=== PATIENT | male | born 1960 | race Caucasian/White ===

== ENCOUNTER → 2024-09-03 08:20 | Outpatient (CLI) | payer MEDICARE, OTHER, SELFPAY ==
--- NOTE | 2024-09-03 08:21 | DI.US.S_ITS ---
PROCEDURE: US EXTREMITY NONVASC LOWER RT INDICATIONS: swain's cyst, possible rupture TECHNIQUE: Real-time scanning was performed of the right knee , with image documentation. COMPARISON: Outside Facility, US, US EXTREMITY NONVASC LOWER RT, 07/08/2024, 16:14. FINDINGS: At the right medial-posterior popliteal fossa, there is a 5.4 x 11.3 x 0.9 cm hypoechoic fluid collection with internal lobulated debris. This collection is contiguous with a fluid collection at the anterior-superior patella. IMPRESSION: Possible 11.3 cm Swain's cyst versus posterior extension of a joint effusion. MRI knee without contrast would be recommended for adequate characterization. Dictated by: Jan Gandara M.D. on 09/03/2024 at 15:07 Approved by: Jan Gandara M.D. on 09/03/2024 at 15:09
== END ==
PROVIDERS: PCP Family Medicine; Referring Provider Family Medicine; Visit Provider Family Medicine
DX: M71.21 Synovial cyst of popliteal space [Baker], right knee (principal)
CPT/HCPCS: 76882

== ENCOUNTER → 2024-09-20 08:41 | Outpatient (CLI) | payer MEDICARE, OTHER, SELFPAY ==
--- NOTE | 2024-09-20 09:15 | DI.MRI.S_ITS ---
PROCEDURE: MR KNEE RT WO CON INDICATIONS: Swain's cyst versus posterior extension of a joint effusion TECHNIQUE: Noncontrast sagittal PD fast spin echo and T2 fast spin echo with fat saturation, sagittal 3-D FLASH with fat saturation; coronal T1 spin echo and PD fast spin echo with fat saturation, and axial PD fast spin echo with fat saturation through the knee. COMPARISON: None. FINDINGS: Image quality: Excellent. Menisci: There is linear oblique, horizontal, and amorphous high signal intensity within the inner, middle, and peripheral thirds of the medial meniscal body and posterior horn, demonstrating superior and inferior articular surface extension, indicating complex tearing. Linear horizontal high T2 signal intensity traverses the inner, middle, and peripheral thirds of the lateral meniscal body, demonstrating inferior articular surface extension, indicating horizontal tearing. Cruciate ligaments: The anterior and posterior cruciate ligaments appear intact. Medial structures: Partial-thickness tearing of the medial collateral ligament is present.. Visualized portions of the pes anserinus tendons appear normal. No abnormal bursal fluid. Lateral structures: The lateral collateral ligament, long and short heads of the biceps femoris tendon appear intact. The popliteus tendon appears normal. Iliotibial band appears normal. Anterior structures: There is thickening of the distal quadriceps tendon which demonstrates several small high T2 intensity foci. Moderate T2 signal elevation within the patellar tendon at the patellar insertion site.. Patellar alignment is normal. No femoral trochlear dysplasia or ventral trochlear prominence. No edema in the infrapatellar fat pad. Bones and cartilage: No bone marrow contusions or fractures. Severe articular cartilage loss diffusely overlies the weight-bearing aspects of the medial femoral condyle and medial tibial plateau. Moderate articular cartilage loss overlies the medial and lateral patellar facets. Joint space: There is a moderate knee joint effusion and a small Swain's cyst. Normal appearing synovial plicae are incidentally noted. IMPRESSION: 1. Medial and lateral meniscal tearing. 2. Tricompartmental osteoarthritis with associated articular cartilage loss. 3. Low-grade partial-thickness tearing of the quadriceps tendon. 4. Patellar tendinitis. 5. Partial-thickness tearing of the medial collateral ligament. 6. Knee joint effusion and Swain's cyst. Dictated by: Raul Culp M.D. on 09/20/2024 at 11:52 Approved by: Raul Culp M.D. on 09/20/2024 at 11:55
== END ==
PROVIDERS: PCP Family Medicine; Referring Provider Family Medicine; Visit Provider Family Medicine
DX: S83.241A Other tear of medial meniscus, current injury, right knee, initial encounter (principal); S83.281A Other tear of lateral meniscus, current injury, right knee, initial encounter; S76.111A Strain of right quadriceps muscle, fascia and tendon, initial encounter; S83.411A Sprain of medial collateral ligament of right knee, initial encounter; M17.11 Unilateral primary osteoarthritis, right knee; M25.461 Effusion, right knee; M76.51 Patellar tendinitis, right knee
CPT/HCPCS: 73721

== ENCOUNTER 2024-10-20 09:46 | Emergency (ER) | payer MEDICARE, OTHER, SELFPAY ==
[2024-10-20 09:52] VITALS: BP 130/64; PULSE 71; O2SAT 98
[2024-10-20 09:57] VITALS: BP 130/64; PULSE 71; RESP 16; TEMP 36.7; O2SAT 95
[2024-10-20 10:00] VITALS: BP 128/67; PULSE 71; O2SAT 94
--- NOTE | 2024-10-20 10:04 | PC.NURSE ---
Pt ambulatory to room with cane. Swelling noted to RLE.
--- NOTE | 2024-10-20 10:11 | PC.NURSE ---
Measured right and left legs and they are consistent with the measurements from [facility]. Swelling has increased up leg to above knee and edema to foot and ankle.
[2024-10-20 10:30] VITALS: BP 113/69; PULSE 62; O2SAT 95
--- NOTE | 2024-10-20 10:55 | DI.US.S_ITS ---
PROCEDURE: US PERIPH VENOUS LOW EXTREM RT INDICATIONS: Known right lower extremity DVT, worsening symptoms TECHNIQUE: Real-time imaging, as well as color and pulse Doppler interrogation, were performed of the lower extremity deep veins from the inguinal ligament to the popliteal fossa, with documentation of the visualized calf veins. COMPARISON: [facility], US EXTREMITY NONVASC LOWER RT, 09/03/2024, 8:41. FINDINGS: The common femoral, femoral, popliteal, and the visualized calf veins are normally compressible, and free of intraluminal thrombus. Color and pulse Doppler demonstrate normal phasic intraluminal flow. There is normal augmentation response to distal compression maneuver. Suspect repair Swain cyst. There is a complex fluid collection without vascularity extending from the popliteal fossa down the medial/metal calf, measuring 20.9 x 3.6 x 3.6 cm. Extension into the calf appears to be new. IMPRESSION: 1. Suspect ruptured Swain cyst. 2. No right lower extremity DVT identified. Dictated by: William Salamanca M.D. on 10/20/2024 at 12:00 Approved by: William Salamanca M.D. on 10/20/2024 at 12:05
--- NOTE | 2024-10-20 10:57 | ED.LOWEXIN ---
HPI - Extremity Injury (Lower) General Chief Complaint: Extremity Injury, Lower Stated Complaint: Right leg blood clot . not getting better Time Seen by Provider: 10/20/24 09:49 Source: patient Mode of arrival: Ambulatory History of Present Illness HPI Narrative: Patient is an adult male with a history of deep vein thrombosis (DVT) diagnosed in the right lower extremity last Friday, who presents with worsening pain and swelling in the affected leg despite treatment with Eliquis. The patient initially experienced pain and swelling localized to the right calf, which has since progressed to involve the foot, ankle, and knee. He reports sharp pain in the posterior aspect of the leg, particularly upon standing and walking, and increased tenderness in the knee today. He has been compliant with Eliquis, taking 10 mg twice daily as prescribed, and has been resting, elevating the leg, and applying heat as instructed. He initially noted improvement on Friday but has since experienced worsening symptoms. He denies chest pain, shortness of breath, or other systemic symptoms. Pertinent positives: Increased swelling and sharp pain in the right lower extremity, tenderness in the knee, and progression of symptoms to involve the foot, ankle, and knee. Pertinent negatives: No chest pain, shortness of breath, erythema, or signs of infection. No pain with passive range of motion of the right knee. Related Data Home Medications Medication Instructions Recorded Confirmed Bacillus coagulans 250 million 500 mmu cells PO QDAY 08/31/24 08/31/24 cell chewable tablet (Digestive Advantage Probiotic Gummy) CPAP 08/31/24 cholecalciferol (vitamin D3) 25 25 mcg PO DAILY 08/31/24 08/31/24 mcg (1,000 unit) capsule epinephrine 0.3 mg/0.3 mL 0.3 mg IM ONCE anaphylaxis, crab 08/31/24 08/31/24 injection, auto-injector ferrous gluconate 1 cap PO .QD 08/31/24 08/31/24 multivitamin (Daily Multi-Vitamin 1 tab PO DAILY 08/31/24 08/31/24 tablet) felodipine 10 mg tablet,extended 10 mg PO DAILY 09/10/24 release 24 hr Previous Rx's Medication Instructions Recorded allopurinol 300 mg tablet 300 mg PO DAILY #90 tabs 09/10/24 lisinopril 20 mg tablet 40 mg (2 x 20 mg) PO DAILY #180 09/10/24 tabs metoprolol tartrate 50 mg tablet 50 mg PO BID #180 tabs 09/10/24 tadalafil 5 mg tablet 5 mg PO DAILY #90 tabs 09/10/24 Allergies Allergy/AdvReac Type Severity Reaction Status Date / Time crab Allergy Severe Anaphylaxis Uncoded 08/31/24 08:50 From DEMEROL Allergy Intermediate Uncoded 08/31/24 08:37 Review of Systems Review of Systems Narrative: Constitutional: no fever, chills, or weight changes. Eyes: no visual changes. Ears/Nose/Throat: no nasal congestion or drainage. Respiratory: denies shortness of breath or increased work of breathing. Cardiac: denies chest pain. Gastrointestinal: no nausea, vomiting, or abdominal pain. Skin: no rash or erythema. Musculoskeletal: reports pain in the posterior right leg, swelling involving the calf, foot, ankle, and knee, and tenderness in the knee. Neurologic: no confusion or weakness. Psychiatric: no mood changes. Other: other. Patient History Medical History (Updated 10/20/24 @ 12:04 by Rubén Wilson MD) Tinnitus (~2009) Sleep apnea (~1999) Allergies Wears glasses Gout (~2009) Hypertension Surgical History (Updated 09/21/24 @ 20:22 by Ashley Whitney) Anesthesia History of hand surgery (~1994) S/P LASIK surgery of both eyes (~2009) History of surgery on arm (~03/1986) Family History (Updated 09/21/24 @ 20:22 by Ashley Whitney) Father History of heart disease Hyperlipidemia Hypertension Social History marital status: number of children: 2 household members: spouse lives independently: Yes occupational status: employed Smoking Status: Never smoker alcohol intake: current (1-3 servings weekly) substance use type: does not use Smoking Status: Never smoker Exam Narrative Exam Narrative: General: Well appearing, well nourished, alert, cooperative, no acute distress. Skin: Good turgor, no rash, unusual bruising or prominent lesions. Head: Normocephalic, atraumatic. HEENT: Conjunctiva clear, EOM intact, PERRL, mucous membranes moist. Neck: Supple, normal ROM. Heart: Regular rate and rhythm, no murmur or gallop or rubs. Pulses intact in the right lower extremity. Lungs: Clear to auscultation. No rales, rhonchi, or wheezes. No increased work of breathing. Abdomen: Soft and nontender. Bowel sounds normal. No mass or hernia. Back: Spine normal without deformity or tenderness, no CVA tenderness. Extremities: Right lower extremity is warm and well-perfused with intact pulses. No erythema or signs of infection overlying the calf or knee. No pain with passive range of motion of the right knee. No deformities or edema. Peripheral pulses intact. Neurologic: CN 2-12 normal. Normal sensation and motor exam. Psychiatric: Oriented X3, normal mood and affect. Initial Vital Signs Initial Vital Signs: Vital Signs Pulse Rate 71 10/20/24 09:52 Blood Pressure 130/64 10/20/24 09:52 Pulse Oximetry 98 10/20/24 09:52 Course Orders Ordered: ED Orders 10/20/24 10:55 US perip venous low extrem rt Stat 10/20/24 11:10 CBC Auto Diff [Complete Blood Count AUTO DIFF] Stat CMP [Comprehensive Metabolic Panel] Stat PT [Prothrombin Time INR] Stat Discontinued Medications Acetaminophen (Acetaminophen 325 Mg Tablet) 975 mg PO NOW ONE Stop: 10/20/24 11:50 Last Admin: 10/20/24 11:57 Dose: 975 mg Documented By: Vital Signs Vital signs: Vital Signs - 8 hr 10/20/24 09:52 10/20/24 09:52 10/20/24 09:57 Temperature 98.0 F Pulse Rate 71 71 Respiratory Rate 16 Blood Pressure 130/64 130/64 Pulse Oximetry 98 95 Oxygen Delivery Method Room Air 10/20/24 10:00 10/20/24 10:00 10/20/24 10:30 Temperature Pulse Rate 71 62 Respiratory Rate Blood Pressure 128/67 Pulse Oximetry 94 95 Oxygen Delivery Method Room Air 10/20/24 10:30 10/20/24 11:00 10/20/24 11:00 Temperature Pulse Rate 70 Respiratory Rate Blood Pressure 113/69 122/68 Pulse Oximetry 96 Oxygen Delivery Method MDM - Extremity Injury (Lower) Lab Data 10/20/24 11:10 10/20/24 11:10 Labs: Lab Results 10/20/24 Range/Units 11:10 WBC 11.8 H (4.5-11.0) X10^3/uL RBC 4.23 L (4.5-5.9) X10^6/uL Hgb 13.3 L (13.5-17.5) g/dL Hct 40.7 L (41-53) % MCV 96.3 (80-100) fL MCH 31.4 (26-34) PG MCHC 32.6 (30-36) % RDW 13.9 (11.6-14.8) % Plt Count 188 (150-400) X10^3/uL Neut % (Auto) 73.8 (50-75) % Lymph % (Auto) 14.5 L (25-40) % [place] % (Auto) 8.7 (3-14) % Eos % (Auto) 2.1 (2-4) % Baso % (Auto) 0.9 (0-2) % Neut # (Auto) 8700 H (1504-8947) /uL Lymph # (Auto) 1700 (5250-6957) /uL [place] # (Auto) 1000 H (0-900) /uL Eos # (Auto) 200 (0-450) /uL Baso # (Auto) 100 (0-100) /uL PT 22.8 H (9.4-12.5) SECONDS INR 2.0 H (0.9-1.3) Sodium 137 (137-145) mmol/L Potassium 4.5 (3.4-5.1) mmol/L Chloride 106 (98-107) mmol/L Carbon Dioxide 22 (22-32) mmol/L BUN 21 H (9-20) mg/dL Creatinine 1.10 (0.66-1.25) mg/dL Estimated GFR > 60 (>60) mL/min BUN/Creatinine Ratio 19.1 (6-22) Glucose 139 H (70-99) mg/dL Calcium 10.1 (8.4-10.2) mg/dL Total Bilirubin 0.7 (0.2-1.3) mg/dL AST 28 (17-59) IU/L ALT 26 (<50) IU/L Alkaline Phosphatase 76 (38-126) U/L Total Protein 7.3 (6.3-8.2) g/dL Albumin 4.2 (3.5-5.0) g/dL Globulin 3.1 (1.7-4.1) g/dL Albumin/Globulin Ratio 1.4 (1.0-2.8) MDM Narrative Medical decision making narrative: INITIAL EVALUATION AND PLAN: - Repeat ultrasound of the right lower extremity to evaluate for changes in the DVT compared to the prior imaging. - Perform basic blood work to assess for any abnormalities. - Contact [place] to obtain the report from the prior ultrasound for comparison. - Continue Eliquis as prescribed. - Provide patient education on signs of pulmonary embolism (e.g., chest pain, shortness of breath) and instructions to return to the ER if these symptoms develop or if walking becomes intolerable. - Monitor for progression of symptoms or complications. Differential diagnosis includes but is not limited to: deep vein thrombosis, pulmonary embolism, cellulitis, venous insufficiency. Lower suspicion for infectious etiology patient has no erythema overlying the calf or the knee low suspicion for septic arthritis or cellulitis causing patient's symptoms. Patient has no signs of significant discoloration to the lower extremity no evidence of phlegmasia cerulea dolens. No chest pain shortness of breath, patient is not tachycardic hypoxic very low suspicion for pulmonary embolism Ultrasound report reviewed the shows evidence of likely ruptured Swain's cyst, waiting on formal radiology report however patient requesting to be discharged as they have an appointment at 1 with the orthopedic surgeon given he is clinically well-appearing I have no signs and symptoms of infection and Swain's cyst fits his clinical picture I believe that it is reasonable to discharge at this time so that he can seek consultation from an orthopedic physical therapist which he would ultimately need for a Swain's cyst regardless. We discussed return precautions to the emergency department and I have lower suspicion for this being a hematoma formed while on Eliquis or worsening of his DVT. Discharge Plan Departure Patient Disposition: Home Clinical Impression: Swain's cyst, ruptured Activity Restrictions/Additional Instructions: You were seen in the emergency department today and had a repeat ultrasound that appears to be a rupture of your previously known Swain's cyst, we are unable to fully evaluate your her previously seen DVTs given obstructed views from Swain cyst. Please continue taking your medications however and return to the emergency department if you have worsening pain or swelling in the lower extremity. You have an appointment today with the orthopedic team which I am discharging you in order to make the appointment please talk to them about your new diagnosis of ruptured Swain cyst for any other interventions that they deem necessary however otherwise please use light compression and elevation interbody should reabsorb fluid over time. Please continue to follow up with her primary care team for evaluation of resolution of your DVT Prescriptions: No Action ferrous gluconate 1 cap PO .QD Patient Comments: 5grams daily cholecalciferol (vitamin D3) 25 mcg (1,000 unit) capsule 25 mcg PO DAILY multivitamin [Daily Multi-Vitamin] Tablet 1 tab PO DAILY Digestive Advantage Prob Gummy 250 million cell tablet,chewable 500 mmu cells PO QDAY (DME) CPAP 0 .ROUTE .MEDSUPPLY epinephrine 0.3 mg/0.3 mL auto-injector 0.3 mg IM ONCE Rx Instructions: as a single dose; may repeat once lisinopril 20 mg tablet 40 mg PO DAILY Qty: 180 3RF allopurinol 300 mg tablet 300 mg PO DAILY Qty: 90 3RF tadalafil 5 mg tablet 5 mg PO DAILY Qty: 90 0RF metoprolol tartrate 50 mg tablet 50 mg PO BID Qty: 180 3RF felodipine 10 mg tablet extended release 24 hr 10 mg PO DAILY Referrals: Donald Woods MD [Primary Care Provider] - Stand Alone Forms: Patient Portal/API/Survey
[2024-10-20 11:00] VITALS: BP 122/68; PULSE 70; O2SAT 96
[2024-10-20 11:18] LABS: Add Manual Diff / Slide Review NO; Basophils Absolute Auto 100 /uL (0-100); Basophils Percent Auto 0.9 % (0-2); Eosinophils Absolute Auto 200 /uL (0-450); Eosinophils Percent Auto 2.1 % (2-4); Hematocrit 40.7 % (41-53); Hemoglobin 13.3 g/dL (13.5-17.5); Lymphocytes Absolute Auto 1700 /uL (1100-4500); Lymphocytes Percent Auto 14.5 % (25-40); Mean Corpuscular HGB Conc 32.6 % (30-36); Mean Corpuscular Hemoglobin 31.4 PG (26-34); Mean Corpuscular Volume 96.3 fL (80-100); Monocytes Absolute Auto 1000 /uL (0-900); Monocytes Percent Auto 8.7 % (3-14); Neutrophils Absolute Auto 8700 /uL (1500-7000); Neutrophils Percent Auto 73.8 % (50-75); Platelet Count 188 X10^3/uL (150-400); Red Blood Cell Count 4.23 X10^6/uL (4.5-5.9); Red Cell Distribution Width 13.9 % (11.6-14.8); White Blood Cell Count 11.8 X10^3/uL (4.5-11.0)
[2024-10-20 11:26] LABS: Prothrombin Time 22.8 SECONDS (9.4-12.5)
[2024-10-20 11:30] LABS: Alanine Aminotransferase 26 IU/L (<50); Albumin 4.2 g/dL (3.5-5.0); Albumin Globulin Ratio 1.4 (1.0-2.8); Alkaline Phosphatase 76 U/L (38-126); Aspartate Aminotransferase 28 IU/L (17-59); BUN Creatinine Ratio 19.1 (6-22); Bilirubin Total 0.7 mg/dL (0.2-1.3); Blood Urea Nitrogen 21 mg/dL (9-20); Calcium 10.1 mg/dL (8.4-10.2); Carbon Dioxide 22 mmol/L (22-32); Chloride 106 mmol/L (98-107); Estimated Glomerular Filt Rate > 60 mL/min (>60); Globulin 3.1 g/dL (1.7-4.1); Glucose 139 mg/dL (70-99); HEMOLYSIS < 15 (0-50); Potassium 4.5 mmol/L (3.4-5.1); Sodium 137 mmol/L (137-145); Total Protein 7.3 g/dL (6.3-8.2)
[2024-10-20] MEDS: ACETAMINOPHEN 325 MG TABLET 975 MG PO (11:57)
[2024-10-20 12:11] VITALS: BP 135/78; PULSE 66; RESP 16; TEMP 36.9; O2SAT 99
== END 2024-10-20 12:12 | disposition home or self-care (01) ==
PROVIDERS: Emergency Provider Emergency Medicine; PCP Family Medicine
DX: M71.21 Synovial cyst of popliteal space [Baker], right knee (principal); Z79.01 Long term (current) use of anticoagulants
CPT/HCPCS: 80053; 85025; 85610; 93971; 99283; 99284